=== PATIENT | male | born 1950 | race Caucasian/White ===

== ENCOUNTER 2019-10-11 09:11 | Day surgery (SDC) | payer MEDICARE, OTHER, SELFPAY ==
--- NOTE | 2019-10-11 | IR_ITS ---
APPROVED REPORT Patient Location: Outpatient Food Photographer: OLE Bravo RT (R) PROCEDURES Pocket Revision Removal of old Pacemaker Implant of Permanent Pacemaker INDICATION END OF BATTERY LIFE. Informed consent was obtained prior to the procedure. COMPLICATIONS NONE Estimated Blood Loss: LESS THAN 10 ML TECHNIQUE 1% lidocaine with epinephrine used to anesthetize the left anterior aspect of the chest. Scalpel was used to make the initial cutaneous incision and then used to dissect down to the existing pacemaker generator. The generator was removed from the existing pocket. Digital manipulation was required along with intermittent usage of scalpel in order to revise the pocket. The leads were removed from the old generator. The new generator was screwed to the existing leads and secured into place. Electronic interrogation proved acceptable thresholds and voltage within the lead. Antibiotics were used to flush the pocket and the pacemaker was secured using 3-0 silk into the newly revised pocket. Monocryl was used to close the subcutaneous tissue and then renate were placed on the cutaneous area in order to approximate the incision. Patient was transferred to the postop holding area in stable condition. INTERROGATION Generator Model: [employer] MRI DR IS-1 L311 Generator Serial No: [id number] RA Lead Model: [employer] Tendril SDX IS-1 Bi Positive Fix Steroid RA/RV 1688T RA Lead Serial No: [id number] RV Lead Model: IsoFlex S Bipolar IS-1 Passive 1646T RA Lead Serial No: [id number] Device Measurements: RA Lead: Intrinsic: 2.0 mV Threshold: 1.1V@0.4ms Impedence: 436 Ohms RV Lead: Intrinsic: 10.0 mV Threshold: 1.1V@0.4ms Impedence: 560 Ohms Parameters: Mode: DDDR Base/Max: 60/120ppm IMPRESSION Successful Pocket Revision Successful Removal of old Pacemaker Successful Implant of Permanent Pacemaker PLAN 1. Post op wound care. Electronically signed by : Germán Oneil, 10/12/2019 12:59:55
[2019-10-11 09:20] VITALS: BMI 36.3
[2019-10-11 09:58] LABS: Basophils # 0.1 K/mm3 (0-0.2); Basophils % 0.8 % (0.1-2.0); Eosinophils # 0.2 K/mm3 (0.0-0.4); Eosinophils % 2.2 % (0.1-12.0); Hematocrit 43.3 % (42.0-52.0); Hemoglobin 14.1 g/dL (14.1-18.0); Lymphocytes # 1.3 K/mm3 (0.7-4.5); Lymphocytes % 18.6 % (10-50); Mean Corpuscular HGB Conc 32.6 g/dL (31.8-35.4); Mean Corpuscular Hemoglobin 29.1 pg (27.0-31.2); Mean Corpuscular Volume 89.5 fl (80-94); Mean Platelet Volume 7.3 fl (7.4-10.4); Monocytes # 0.6 K/mm3 (0.1-1.0); Monocytes % 9.1 % (1.7-9.3); Neutrophils # 4.9 K/mm3 (1.8-7.8); Neutrophils % 69.4 % (37.0-80.0); Platelet Count 257 K/mm3 (142-424); Red Blood Count 4.84 M/mm3 (4.60-6.20); Red Cell Distribution Width 14.4 % (11.5-17.5)
[2019-10-11 10:00] LABS: Chloride 106 mmol/L (98-107); Potassium 4.3 mmoL/L (3.5-5.1); Sodium 139 mmol/L (136-145)
[2019-10-11 10:03] LABS: Anion Gap 10.3 mEq/L (5-15); Blood Urea Nitrogen 23 mg/dl (9-20); Carbon Dioxide 27 mmol/L (22.0-30.0); Creatinine Clearance Estimated 93 mL/min (50-200); Estimated Glomerular Filt Rate 67 ml/min (>60); GFR (African American) 81 ML/MIN (>60)
[2019-10-11 10:04] LABS: Calcium 10.4 mg/dl (8.4-10.2); Glucose 83 mg/dl (74-100)
[2019-10-11 12:30] VITALS: BP 136/80; PULSE 70; RESP 16; O2SAT 91
[2019-10-11 12:45] VITALS: BP 135/79; PULSE 70; RESP 18; O2SAT 95
[2019-10-11 13:00] VITALS: BP 129/82; PULSE 70; RESP 18; O2SAT 94
[2019-10-11 13:15] VITALS: BP 139/83; PULSE 70; RESP 18; O2SAT 97
[2019-10-11 13:45] VITALS: BP 131/84; PULSE 70; RESP 18; O2SAT 96
[2019-10-11 14:15] VITALS: BP 118/78; PULSE 70; RESP 18; O2SAT 97
== END 2019-10-11 14:49 | disposition home or self-care (01) ==
LOC: CATHLAB 09:15
PROVIDERS: PCP Internal Medicine Cardiovascular Disease; Visit Provider Internal Medicine
DX: T82.121A Displacement of cardiac pulse generator (battery), initial encounter (principal); Z45.010 Encounter for checking and testing of cardiac pacemaker pulse generator [battery]; I11.0 Hypertensive heart disease with heart failure; I50.9 Heart failure, unspecified; E11.9 Type 2 diabetes mellitus without complications; I25.10 Atherosclerotic heart disease of native coronary artery without angina pectoris; Z95.5 Presence of coronary angioplasty implant and graft; Z79.01 Long term (current) use of anticoagulants; Z79.899 Other long term (current) drug therapy; Z91.040 Latex allergy status
CPT/HCPCS: 33228; 80048; 85025; 99152; 99153; C1785